=== PATIENT | female | born 1955 | race Caucasian/White ===

== ENCOUNTER → 2019-05-15 | Outpatient (CLI) | payer MEDICARE, OTHER ==
[~2019-05-15] MED LIST: CATHETER FLUSH 10 ML SYR IV PRN; HOLD METFORMIN - RECEIVED CONTRAST 20 ML VIAL IV SCH; IOHEXOL 350 MG/ML 100 ML (OMNIPAQUE 350) VIAL IV ONE; NS 100 ML (IVPB) BAG IV ONE
[2019-05-15 13:22] LABS: ALANINE AMINOTRANSFERASE 22 U/L (0-55); ALBUMIN 4.3 GM/DL (3.2-4.5); ALKALINE PHOSPHATASE 87 U/L (40-136); BILIRUBIN,TOTAL 0.4 MG/DL (0.1-1.0); BUN/CREATININE RATIO 20; CALCIUM 9.6 MG/DL (8.5-10.1); CARBON DIOXIDE 29 MMOL/L (21-32); CHLORIDE 99 MMOL/L (98-107); CREATININE SERUM 0.71 MG/DL (0.60-1.30); GFR ESTIMATED > 60; GLUCOSE 115 MG/DL (70-105); POTASSIUM 3.4 MMOL/L (3.6-5.0); SODIUM 141 MMOL/L (135-145); TOTAL PROTEIN 7.1 GM/DL (6.4-8.2)
--- NOTE | 2019-05-15 15:07 | Diagnostic Imaging Report ---
PROCEDURE: CT neck soft tissue with and without contrast. TECHNIQUE: Helically acquired axial images were obtained through the neck both before and after the administration of intravenous contrast. Auto Exposure Controls were utilized during the CT exam to meet ALARA standards for radiation dose reduction. INDICATION: Two months history of sore throat and skin lesion. Pre- and post-IV contrast-enhanced soft tissue neck CT performed. Surface marker in the right neck laterally has been placed at the site of recent skin lesion. FINDINGS: Deep to the marker site, no mass or fluid collection. The right parotid gland appeared unremarkable. The contralateral left parotid appears replaced by fat. Submandibular is unremarkable. There are carotid atherosclerotic vascular calcifications. No venous thrombus. No lymphadenopathy. Prevertebral and retropharyngeal spaces unremarkable. The nasopharynx, oropharynx, and hypopharynx are unremarkable. Thoracic inlet and supraclavicular fossae unremarkable. There is suggestion of some thickening of the hernandez of the cervical and upper thoracic esophagus. No evidence for obstruction. IMPRESSION: Fatty atrophy of the left parotid. No mass, fluid collection or adenopathy in the right neck. No fluid collection, however thickening of the cervical and thoracic esophagus noted may be a reflective of an element of esophagitis. Dictated by: Dictated on workstation # [id number]
== END ==
LOC: LAB FS 12:45
PROVIDERS: ATTEND Nurse Practitioner
DX: M54.2 Cervicalgia (principal)
CPT/HCPCS: 36415; 70492; 80053

== ENCOUNTER 2019-08-23 17:50 | Emergency (ER) | payer MEDICARE ==
[~2019-08-23] VITALS: Ht 175.2 cm; Wt 74.7 kg
--- OUTSIDE RECORDS SUMMARY | 2019-08-23 18:14 | XMS REPORT | Continuity of Care Document ---
Author Organization Unknown Address Unknown Phone Unavailable Allergies Active Description Code Type Severity Reaction Onset Reported/Identified Relationship to Patient Clinical Status Yes No Allergy Information Available [id number] Drug Allergy Unknown N/A 020 Medications There is no data. Problems Date Dx Coded Attending Type Code Diagnosis Diagnosed By 05/19/2019 JOSUE PEREZP Ot M54.2 CERVICALGIA 05/19/2019 JOSUE PEREZ Ot M54.2 CERVICALGIA 06/04/2019 JOSUE PEREZ Ot M54.2 CERVICALGIA Procedures There is no data. Results Test Result Range PDM - 09 PANEL (PROFILE 1) - 05/30/18 13 :59 Prescribed Drug 1 Hydrocodone NRG Creatinine 99.2 mg/dL > or = 20.0 pH 5.59 4.5 - 9.0 Oxidant NEGATIVE mcg/mL <200 Amphetamines NEGATIVE ng/mL <500 medMATCH Amphetamines CONSISTENT NRG Benzodiazepines POSITIVE ng/mL <100 Marijuana Metabolite NEGATIVE ng/mL <20 medMATCH Marijuana Metab CONSISTENT NRG Cocaine Metabolite NEGATIVE ng/mL <150 medMATCH Cocaine Metab CONSISTENT NRG Opiates NEGATIVE CONFIRMED ng/mL <100 Oxycodone NEGATIVE ng/mL <100 medMATCH Oxycodone CONSISTENT NRG COMMENT NRG Alphahydroxyalprazolam 596 ng/mL <25 medMATCH aOH alprazolam CONSISTENT NRG Alphahydroxymidazolam NEGATIVE ng/mL < 50 medMATCH aOH midazolam CONSISTENT NRG Alphahydroxytriazolam NEGATIVE ng/mL < 50 medMATCH aOH triazolam CONSISTENT NRG Aminoclonazepam NEGATIVE ng/mL <25 medMATCH Aminoclonazepam CONSISTENT NRG Hydroxyethylflurazepam NEGATIVE ng/mL <50 medMATCH OH,Et flurazepam CONSISTENT NR G Lorazepam NEGATIVE ng/mL <50 medMATCH Lorazepam CONSISTENT NRG Nordiazepam NEGATIVE ng/mL <50 medMATCH Nordiazepam CONSISTENT NRG Oxazepam NEGATIVE ng/mL <50 medMATCH Oxazepam CONSISTENT NRG Temazepam NEGATIVE ng/mL <50 medMATCH Temazepam CONSISTENT NRG Codeine NEGATIVE ng/mL <50 medMATCH Codeine CONSISTENT NRG Hydrocodone NEGATIVE ng/mL <50 medMATCH Hydrocodone INCONSISTENT NRG Hydromorphone NEGATIVE ng/mL <50 medMATCH Hydromorphone INCONSISTENT NRG Morphine NEGATIVE ng/mL <50 medMATCH Morphine CONSISTENT NRG Norhydrocodone NEGATIVE ng/mL <50 medMATCH Norhydrocodone INCONSISTENT NR G Prescribed Drug 2 Alprazolam NRG Barbiturates NEGATIVE ng/mL <300 medMATCH Barbiturates CONSISTENT NRG Methadone Metabolite NEGATIVE ng/mL <100 medMATCH Methadone Metab CONSISTENT NRG Phencyclidine NEGATIVE ng/mL <25 medMATCH Phencyclidine CONSISTENT NRG TSH w/ FREE T4 - 06/16/18 09:46 TSH TNP mIU/L NRG T4, FREE TNP ng/dL NRG TSH w/ FREE T4 - 06/16/18 09:46 TSH 0.83 mIU/L 0.40-4.50 T4, FREE 1.0 ng/dL 0.8-1.8 CMP - 08/11/18 17:55 GLUCOSE 148 mg/dL 65-99 UREA NITROGEN (BUN) 27 mg/dL 7-25 CREATININE 1.72 mg/dL 0.50-0.99 eGFR NON-AFR. UKRAINIAN 32 mL/min/1.73m2 > OR = 60 eGFR 37 mL/min/1.73m2 > OR = 60 BUN/CREATININE RATIO 16 (calc) 6-22 SODIUM 139 mmol/L 135-146 POTASSIUM 3.0 mmol/L 3.5-5.3 CHLORIDE 94 mmol/L 98-110 CARBON DIOXIDE 32 mmol/L 20-32 CALCIUM 9.1 mg/dL 8.6-10.4 PROTEIN, TOTAL 6.5 g/dL 6.1-8.1 ALBUMIN 4.0 g/dL 3.6-5.1 GLOBULIN 2.5 g/dL (calc) 1.9-3.7 ALBUMIN/GLOBULIN RATIO 1.6 (calc) 1.0-2. 5 BILIRUBIN, TOTAL 0.5 mg/dL 0.2-1.2 ALKALINE PHOSPHATASE 259 U/L 33-130 AST 90 U/L 10-35 ALT 97 U/L 6-29 CBC w/MANUAL DIFF - 08/11/18 17:55 WHITE BLOOD CELL COUNT 12.6 Thousand/uL 3.8-10.8 RED BLOOD CELL COUNT 4.66 Million/uL 3.8 0-5.10 HEMOGLOBIN 14.3 g/dL 11.7-15.5 HEMATOCRIT 43.8 % 35.0-45.0 MCV 94.0 fL 80.0-100.0 MCH 30.7 pg 27.0-33.0 MCHC 32.6 g/dL 32.0-36.0 RDW 12.7 % 11.0-15.0 PLATELET COUNT 371 Thousand/uL 140-400 MPV 9.4 fL 7.5-12.5 LIPASE - 08/11/18 17:55 LIPASE 19 U/L 7-60 AMYLASE - 08/11/18 17:55 AMYLASE 21 U/L 21-101 DIFFERENTIAL, MANUAL - 08/11/18 17:55 ABSOLUTE NEUTROPHILS 9425 cells/uL 1500- 7800 ABSOLUTE MONOCYTES 680 cells/uL 200-950 ABSOLUTE EOSINOPHILS 0 cells/uL 15-500 ABSOLUTE BASOPHILS 0 cells/uL 0-200 NEUTROPHILS 74.8 % NRG LYMPHOCYTES 10.8 % NRG MONOCYTES 5.4 % NRG EOSINOPHILS 0 % NRG BASOPHILS 0 % NRG ABSOLUTE BAND NEUTROPHILS 1134 cells/uL 0-750 ABSOLUTE LYMPHOCYTES 1361 cells/uL 850-3 900 BAND NEUTROPHILS 9.0 % NRG PLATELET ESTIMATION ADEQUATE ADEQUATE DIFFERENTIAL, MANUAL - 08/26/18 15:25 ABSOLUTE NEUTROPHILS 6765 cells/uL 1500- 7800 ABSOLUTE MONOCYTES 984 cells/uL 200-950 ABSOLUTE EOSINOPHILS 0 cells/uL 15-500 ABSOLUTE BASOPHILS 0 cells/uL 0-200 NEUTROPHILS 55 % NRG LYMPHOCYTES 37 % NRG MONOCYTES 8 % NRG EOSINOPHILS 0 % NRG BASOPHILS 0 % NRG ABSOLUTE LYMPHOCYTES 4551 cells/uL 850-3 900 PLATELET ESTIMATION INCREASED ADEQUATE CBC MORPHOLOGY NORMAL BNP - 08/26/18 15:25 B TYPE NATRIURETIC PEPTIDE (BNP) 14 pg/mL <100 CMP - 09/17/18 10:50 GLUCOSE TNP mg/dL NRG CBC w/MANUAL DIFF - 09/17/18 10:50 WHITE BLOOD CELL COUNT TNP Thousand/uL N RG CBC w/MANUAL DIFF - 09/17/18 10:50 WHITE BLOOD CELL COUNT 8.8 Thousand/uL 3 .8-10.8 RED BLOOD CELL COUNT 4.67 Million/uL 3.8 0-5.10 HEMOGLOBIN 15.0 g/dL 11.7-15.5 HEMATOCRIT 43.9 % 35.0-45.0 MCV 94.0 fL 80.0-100.0 MCH 32.1 pg 27.0-33.0 MCHC 34.2 g/dL 32.0-36.0 RDW 14.0 % 11.0-15.0 PLATELET COUNT 301 Thousand/uL 140-400 MPV 9.1 fL 7.5-12.5 COMMENT(S) NRG DIFFERENTIAL, MANUAL - 09/17/18 10:50 ABSOLUTE NEUTROPHILS 5069 cells/uL 1500- 7800 ABSOLUTE MONOCYTES 352 cells/uL 200-950 ABSOLUTE EOSINOPHILS 176 cells/uL 15-500 ABSOLUTE BASOPHILS 0 cells/uL 0-200 NEUTROPHILS 57.6 % NRG LYMPHOCYTES 36.4 % NRG MONOCYTES 4.0 % NRG EOSINOPHILS 2.0 % NRG BASOPHILS 0 % NRG ABSOLUTE LYMPHOCYTES 3203 cells/uL 850-3 900 PLATELET ESTIMATION ADEQUATE ADEQUATE CRP - 09/19/18 15:05 C-REACTIVE PROTEIN 4.6 mg/L <8.0 FERRITIN, SERUM - 09/19/18 15:05 FERRITIN 38 ng/mL 16-288 VITAMIN D, 25-H - 09/19/18 15:05 VITAMIN D,25-OH,TOTAL,IA 38 ng/mL 30-10 0 COPY RECEIVED FROM: - 09/19/18 15:05 COPY RECEIVED FROM: [facility] QUANTIFERON(R)-TB GOLD PLUS, 1 TUBE - 15:05 QUANTIFERON(R)-TB GOLD PLUS, 1 TUBE NEGATIVE NEGATIVE NIL 0.01 IU/mL NRG MITOGEN-NIL 9.17 IU/mL NRG TB1-NIL 0.00 IU/mL NRG TB2-NIL 0.00 IU/mL NRG VITAMIN D, 25-H - 12/23/18 11:31 VITAMIN D,25-OH,TOTAL,IA 29 ng/mL 30-10 0 CMP - 03/10/19 11:11 GLUCOSE 116 mg/dL 65-99 UREA NITROGEN (BUN) 21 mg/dL 7-25 CREATININE 0.66 mg/dL 0.50-0.99 eGFR NON-AFR. UKRAINIAN 95 mL/min/1.73m2 > OR = 60 eGFR 110 mL/min/1.73m2 > OR = 60 BUN/CREATININE RATIO NOT APPLICABLE (calc) 6-22 SODIUM 141 mmol/L 135-146 POTASSIUM 3.7 mmol/L 3.5-5.3 CHLORIDE 101 mmol/L 98-110 CARBON DIOXIDE 31 mmol/L 20-32 CALCIUM 9.8 mg/dL 8.6-10.4 PROTEIN, TOTAL 7.2 g/dL 6.1-8.1 ALBUMIN 4.5 g/dL 3.6-5.1 GLOBULIN 2.7 g/dL (calc) 1.9-3.7 ALBUMIN/GLOBULIN RATIO 1.7 (calc) 1.0-2. 5 BILIRUBIN, TOTAL 0.4 mg/dL 0.2-1.2 ALKALINE PHOSPHATASE 81 U/L 33-130 AST 20 U/L 10-35 ALT 19 U/L 6-29 CBC - 04/29/19 16:39 WHITE BLOOD CELL COUNT 9.9 Thousand/uL 3 .8-10.8 RED BLOOD CELL COUNT 4.49 Million/uL 3.8 0-5.10 HEMOGLOBIN 14.7 g/dL 11.7-15.5 HEMATOCRIT 41.1 % 35.0-45.0 MCV 91.5 fL 80.0-100.0 MCH 32.7 pg 27.0-33.0 MCHC 35.8 g/dL 32.0-36.0 RDW 13.2 % 11.0-15.0 PLATELET COUNT 309 Thousand/uL 140-400 MPV 9.6 fL 7.5-12.5 ABSOLUTE NEUTROPHILS 4336 cells/uL 1500- 7800 ABSOLUTE LYMPHOCYTES 4712 cells/uL 850-3 900 ABSOLUTE MONOCYTES 564 cells/uL 200-950 ABSOLUTE EOSINOPHILS 228 cells/uL 15-500 ABSOLUTE BASOPHILS 59 cells/uL 0-200 NEUTROPHILS 43.8 % NRG LYMPHOCYTES 47.6 % NRG MONOCYTES 5.7 % NRG EOSINOPHILS 2.3 % NRG BASOPHILS 0.6 % NRG Comprehensive metabolic panel - 05/15/19 12:56 Serum or plasma sodium measurement (moles/volume) 141 mmol/L 135-145 Serum or plasma potassium measurement (moles/volume) 3.4 mmol/L 3.6-5.0 Serum or plasma chloride measurement (moles/volume) 99 mmol/L 98-107 Carbon dioxide 29 mmol/L 21-32 Serum or plasma anion gap determination (moles/volume) 13 mmol/L 5-14 Serum or plasma urea nitrogen measurement (mass/volume ) 14 mg/dL 7-18 Serum or plasma creatinine measurement (mass/volume) 0.71 mg/dL 0.60-1.30 Serum or plasma urea nitrogen/creatinine mass ratio 20 NRG Serum or plasma creatinine measurement w ith calculation of estimated glomerular filtration rate > NRG Serum or plasma glucose measurement (mass/volume) 115 mg/dL 70-105 Serum or plasma calcium measurement (mass/volume) 9.6 mg/dL 8.5-10.1 Serum or plasma total bilirubin measurement (mass/volu me) 0.4 mg/dL 0.1-1.0 Serum or plasma alkaline phosphatase rodrick surement (enzymatic activity/volume) 87 U/L 40-136 Serum or plasma aspartate aminotransfera se measurement (enzymatic activity/volume) 23 U/L 5-34 Serum or plasma alanine aminotransferase measurement (enzymatic activity/volume) 22 U/L 0-55 Serum or plasma protein measurement (mass/volume) 7.1 g/dL 6.4-8.2 Serum or plasma albumin measurement (mass/volume) 4.3 g/dL 3.2-4.5 CALCIUM CORRECTED 9.4 mg/dL 8.5-10.1 PDM - 09 PANEL (PROFILE 1) - 07/23/19 11 :56 Prescribed Drug 1 Xanax(TM) NRG Creatinine 133.1 mg/dL > or = 20.0 pH 6.8 4.5-9.0 Oxidant NEGATIVE mcg/mL <200 Amphetamines NEGATIVE ng/mL <500 medMATCH Amphetamines CONSISTENT NRG Benzodiazepines POSITIVE ng/mL <100 Marijuana Metabolite NEGATIVE ng/mL <20 medMATCH Marijuana Metab CONSISTENT NRG Cocaine Metabolite NEGATIVE ng/mL <150 medMATCH Cocaine Metab CONSISTENT NRG Opiates POSITIVE ng/mL <100 Oxycodone NEGATIVE ng/mL <100 medMATCH Oxycodone CONSISTENT NRG COMMENT NRG Alphahydroxyalprazolam 1212 ng/mL <25 medMATCH aOH alprazolam CONSISTENT NRG Alphahydroxymidazolam NEGATIVE ng/mL < 50 medMATCH aOH midazolam CONSISTENT NRG Alphahydroxytriazolam NEGATIVE ng/mL < 50 medMATCH aOH triazolam CONSISTENT NRG Aminoclonazepam NEGATIVE ng/mL <25 medMATCH Aminoclonazepam CONSISTENT NRG Hydroxyethylflurazepam NEGATIVE ng/mL <50 medMATCH [place],Et flurazepam CONSISTENT NR G Lorazepam NEGATIVE ng/mL <50 medMATCH Lorazepam CONSISTENT NRG Nordiazepam NEGATIVE ng/mL <50 medMATCH Nordiazepam CONSISTENT NRG Oxazepam NEGATIVE ng/mL <50 medMATCH Oxazepam CONSISTENT NRG Temazepam NEGATIVE ng/mL <50 medMATCH Temazepam CONSISTENT NRG Codeine NEGATIVE ng/mL <50 medMATCH Codeine CONSISTENT NRG Hydrocodone 1815 ng/mL <50 medMATCH Hydrocodone CONSISTENT NRG Hydromorphone 85 ng/mL <50 medMATCH Hydromorphone CONSISTENT NRG Morphine NEGATIVE ng/mL <50 medMATCH Morphine CONSISTENT NRG Norhydrocodone 3909 ng/mL <50 medMATCH Norhydrocodone CONSISTENT NRG Prescribed Drug 2 Hydrocodone NRG Barbiturates NEGATIVE ng/mL <300 medMATCH Barbiturates CONSISTENT NRG Methadone Metabolite NEGATIVE ng/mL <100 medMATCH Methadone Metab CONSISTENT NRG Phencyclidine NEGATIVE ng/mL <25 medMATCH Phencyclidine CONSISTENT NRG Encounters ACCT No. Visit Date/Time Discharge Status Pt. Type Provider Facility Loc./Unit Complaint [id number] 07/29/2019 18:20:00 07/29/2019 23:59: 59 [facility] Outpatient CHRISTIANA SHEPARD [id number] 07/23/2019 11:00:00 Document Registration [id number] 04/29/2019 15:20:00 Document Registration [id number] 03/10/2019 10:00:00 Document Registration [id number] 12/23/2018 11:00:00 Document Registration [id number] 09/19/2018 15:05:00 Document Registration [id number] 09/17/2018 10:50:00 Document Registration [id number] 09/17/2018 10:20:00 Document Registration [id number] 08/26/2018 14:20:00 Document Registration [id number] 08/11/2018 17:00:00 Document Registration [id number] 06/16/2018 09:46:00 Document Registration [id number] 06/16/2018 09:20:00 Document Registration [id number] 05/30/2018 14:40:00 Document Registration [id number] 05/15/2019 12:45:00 020 23:59:59 CLS Outpatient JOSUE PEREZ [facility] LAB FS NECK PAIN
[2019-08-23] MEDS ORDERED: DIAZEPAM 5 MG (VALIUM) TABLET PO ONE (18:15)
[2019-08-23] MEDS ORDERED: oxyCODONE/APAP 5/325MG (PERCOCET 5) TABLET PO ONE (18:15)
[2019-08-23] MEDS ORDERED: KETOROLAC 60 MG/2 ML VIAL IM ONE (18:15)
--- NOTE | 2019-08-23 18:48 | Diagnostic Imaging Report ---
PROCEDURE: CT chest without contrast. TECHNIQUE: Multiple contiguous axial images were obtained through the chest without the use of intravenous contrast. Auto Exposure Controls were utilized during the CT exam to meet ALARA standards for radiation dose reduction. INDICATION: Left-sided pain following a fall. FINDINGS: No rib fracture deformity identified. Visualized upper abdomen shows no free fluid or free air. There is no pneumothorax or hemothorax. Some areas of subpleural scarring in the lower lobes and lingular segment of the left upper lobe inferiorly are present. No findings suggestive of pulmonary contusion or laceration. No dominant mass or suspicious lymph nodes. There are some mild central predominantly cylindrical but slightly varicoid bronchiectasis on a chronic basis. There is mild symmetrical air trapping. There is low-density nodularity in the thyroid lobes, greater left. Indeterminate solid versus cystic nonemergent outpatient thyroid ultrasound suggested. The reconstruction views reveal a mid to anterior 3rd T8 superior endplate compression fracture which appears sclerotic and healed. No acute spinal injury. Sternomanubrium appears intact. IMPRESSION: Some chronic areas of pleural parenchymal scarring and central bronchiectasis. An old T8 single column compression deformity appears healed and chronic. No acute injury evident. Indeterminate thyroid nodule is nonemergent. Outpatient ultrasound suggested. Dictated by: Dictated on workstation # [id number]
--- NOTE | 2019-08-23 19:05 | ED General ---
General Chief Complaint: Back Problems Stated Complaint: FALL; RIB INJ History of Present Illness Date Seen by Provider: August 23, 2019 Time Seen by Provider: 19:01 Initial Comments Patient presenting to emergency department for evaluation of left mid back pain that was sustained after a fall 2 days ago she said she lost her balance and fell backwards onto a hose with a bolt sticking upwards. She said she then lifted something today and it caused her more back pain and now she is in a 10 out of 10 back pain. No other areas of pain or trauma and she denies any shortness of breath or bladder incontinence saddle anesthesia unilateral weakness numbness or tingling. She has been taking hydrocodone for pain with no relief. She is in no obvious distress with normal vital signs. Allergies and Home Medications Allergies Coded Allergies: Mxbjtgo-Zcg-Dnx Reductase Inhibitor (Verified Allergy, Unknown, 08/23/19) ketorolac (Verified Allergy, Unknown, 08/23/19) sulfamethoxazole (Verified Allergy, Unknown, 08/23/19) trimethoprim (Verified Allergy, Unknown, 08/23/19) Patient Home Medication List Home Medication List Reviewed: Yes Review of Systems Review of Systems Constitutional: no symptoms reported EENTM: no symptoms reported Respiratory: no symptoms reported Cardiovascular: no symptoms reported Gastrointestinal: no symptoms reported Musculoskeletal: back pain Skin: no symptoms reported Psychiatric/Neurological: No Symptoms Reported All Other Systems Reviewed Negative Unless Noted: Yes Past Oqltnqu-Dorchp-Cqlmxc Hx Patient Social History Recent Foreign Travel: No Contact w/Someone Who Travel: No Physical Exam Vital Signs Capillary Refill : Height, Weight, BMI Height: '" Weight: lbs. oz. kg; BMI Method: General Appearance: No Apparent Distress, WD/WN HEENT: PERRL/EOMI Neck: Full Range of Motion, Non Tender, Supple Respiratory: Lungs Clear, No Respiratory Distress Cardiovascular: Regular Rate, Rhythm Gastrointestinal: Non Tender, Soft Back: No Vertebral Tenderness, Other (L T spine paraspinal ttp from T5 to T10) Neurologic/Psychiatric: Alert, Oriented x3, No Motor/Sensory Deficits Skin: Warm/Dry Progress/Results/Core Measures Suspected Sepsis SIRS Temperature: Pulse: Respiratory Rate: Blood Pressure / Mean: Results/Orders My Orders Orders - COREY RAYMOND DO Ct Chest Wo (08/23/19 18:10) Oxycodone/Apap 5/325mg Tablet (Percocet (08/23/19 18:15) Diazepam Tablet (Valium Tablet) (08/23/19 18:15) Medications Given in ED Current Medications Medications Dose Ordered Sig/Adriana Route Start Time Stop Time Status Last Admin Dose Admin Diazepam 5 mg ONCE ONCE PO 08/23/19 18:15 08/23/19 18:16 DC 08/23/19 18:35 5 MG Oxycodone/ Acetaminophen 2 tab ONCE ONCE PO 08/23/19 18:15 08/23/19 18:16 DC 08/23/19 18:36 2 TAB Vital Signs/I&O Capillary Refill : Progress Note : Progress Note Patient likely has paraspinal contusion or rib contusion. She has an allergy to NSAIDs so she'll have to continue taking her home hydrocodone. I told her she could use [id number]-[id number]-[id number] lidocaine but she will likely be sore for the next 1- 2 weeks. Given patient appears well with normal vital signs benign physical exam and workup she'll be discharged in stable condition told to follow primary care provider within 2-3 days and come back to the ED sooner with worsening pain neurologic changes or other general concerns. Patient aware and agreeable with plan and verbalized understanding of the above instructions. Departure Impression Primary Impression: Thoracic back pain Qualified Codes: M54.6 - Pain in thoracic spine Disposition: HOME, SELF-CARE Condition: Stable Departure-Patient Inst. Referrals: JOSUE PEREZ (PCP) Primary Care Physician JIM THOMPSON DO (Family) Primary Care Physician Patient Instructions: Bruised Rib (DC) COREY RAYMOND DO August 23, 2019 19:04
[2019-08-23 19:10] VITALS: BP 125/80
== END 2019-08-23 19:10 | disposition home or self-care (01) ==
LOC: EDUNIT# 17:50 → ER FS 17:53
DX: M54.6 Pain in thoracic spine (principal); Z88.6 Allergy status to analgesic agent; Z88.2 Allergy status to sulfonamides; Z88.1 Allergy status to other antibiotic agents; Z88.8 Allergy status to other drugs, medicaments and biological substances; Z87.828 Personal history of other (healed) physical injury and trauma; X50.0XXA Overexertion from strenuous movement or load, initial encounter
CPT/HCPCS: 71250

== ENCOUNTER → 2022-07-04 | Outpatient (CLI) | payer MEDICARE ==
--- NOTE | 2022-07-04 12:09 | Diagnostic Imaging Report ---
INDICATION: History of COPD. Wheezing. COMPARISON: None FINDINGS: Frontal and lateral radiographic views of the chest were obtained and show probable small right basilar effusion versus pleural thickening or scarring with associated asymmetric elevation the right hemidiaphragm. There is no large effusion on the left. No pneumothorax is seen on either side. Lungs are otherwise clear. Cardiac silhouette and pulmonary vasculature are within normal. Osseous structures show no gross acute abnormalities. IMPRESSION: 1. Probable small right basilar effusion with associated asymmetric elevation right hemidiaphragm. Dictated by: Dictated on workstation # [id number]
== END ==
LOC: RAD FS 10:29
PROVIDERS: ATTEND Registered Nurse Emergency
DX: J44.9 Chronic obstructive pulmonary disease, unspecified (principal); J01.80 Other acute sinusitis
CPT/HCPCS: 71046

== ENCOUNTER → 2022-07-20 | Outpatient (CLI) | payer MEDICARE ==
--- NOTE | 2022-07-20 16:26 | Diagnostic Imaging Report ---
EXAMINATION: Chest 2 view. HISTORY: Cough. COMPARISON: 07/04/2022. FINDINGS: The lungs are clear without edema or pneumonia. No pleural effusion or pneumothorax. Heart size is normal. IMPRESSION: Clear lungs. Dictated by: Dictated on workstation # [id number]
== END ==
LOC: RAD FS 12:11
PROVIDERS: ATTEND Registered Nurse Emergency
DX: R05.1 Acute cough (principal); R06.00 Dyspnea, unspecified
CPT/HCPCS: 71046